=== PATIENT | female | born 1950 | race Caucasian/White ===

== ENCOUNTER 2017-02-11 12:44 | Observation (INO) | payer OTHER, BC ==
--- NOTE | 2017-02-11 12:55 | CPEKG ---
Heart Rate: 81 RR Interval: 741 P-R Interval: 160 QRSD Interval: 72 QT Interval: 348 QTC Interval: 404 P [place]: 60 QRS [place]: 52 T Wave [place]: 19 EKG Severity - ABNORMAL ECG - EKG Impression: SINUS RHYTHM EKG Impression: LEFT ATRIAL ABNORMALITY EKG Impression: Agree with above Electronically Signed By: Sin Sherman 13-Feb-2017 10:52:57
[2017-02-11] MEDS ORDERED: ASPIRIN 81 MG CHEWABLE TAB PO ONE (13:06)
[2017-02-11] MEDS ORDERED: LIDOCAINE 2% VISCOUS 15 ML UDCUP PO ONE (13:06)
[2017-02-11] MEDS ORDERED: MAG HYDROX/AL HYDROX/SIMETH 30 ML UDCUP PO ONE (13:06)
[2017-02-11] MEDS ORDERED: HYOSCYAMINE SULFATE 0.125 MG TAB PO ONE (13:06)
[2017-02-11 13:13] LABS: % IMMATURE GRANULYOCYTES 0.7 % (0.0-1.1); ABSOLUTE IMMATURE GRANULOCYTES 0.08 10^3/uL (0.00-0.10); ADD DIFF? NO; ADD MORPH? NO; ADD SCAN? NO; ATYPICAL LYMPHOCYTE FLAG 0 (0-99); FRAGMENT RBC FLAG 0 (0-99); HEMATOCRIT 42.8 % (38.0-47.0); HEMOGLOBIN 15.3 g/dL (12.6-16.3); LEFT SHIFT FLG 0 (0-99); LIPEMIA HEMOLYSIS FLAG 90 (0-99); MEAN CELL HEMOGLOBIN 32.1 pg (27.9-34.1); MEAN CELL HEMOGLOBIN CONCENTR. 35.7 g/dL (32.4-36.7); MEAN CELL VOLUME 89.7 fL (81.5-99.8); MEAN PLATELET VOLUME 8.9 fL (8.7-11.7); PLATELET CLUMPS FLAG 0 (0-99); PLATELET COUNT 356 10^3/uL (150-400); RED BLOOD CELL COUNT 4.77 10^6/uL (4.18-5.33); RED CELL DISTRIBUTION WIDTH 13.5 % (11.5-15.2)
[2017-02-11 13:21] LABS: ANION GAP 14 mEq/L (8-16); CARBON DIOXIDE 22 mEq/l (22-31); CHLORIDE 96 mEq/L (97-110); CREATININE 0.8 mg/dL (0.6-1.0); GLOMERULAR FILTRATION RATE > 60; GLUCOSE 94 mg/dL (70-100); POTASSIUM 4.8 mEq/L (3.5-5.2); SODIUM 132 mEq/L (134-144)
--- NOTE | 2017-02-11 13:22 | EDPHY ---
H & P Stated Complaint: chest tightness and sob since yesterday Time Seen by Provider: 02/11/17 12:50 HPI/ROS: CHIEF COMPLAINT: Episodic chest discomfort/warmth with shortness of breath and lightheadedness HISTORY OF PRESENT ILLNESS: 67-year-old female with no cardiac risk factors except for possible slightly high cholesterol presents with shortness of breath , lightheadedness and chest discomfort. Approximately 3-4 weeks ago the patient had a significant poison carla exposure. This resulted in a full body rash in the patient was on prednisone for 10 days. Last dose of prednisone was 3 days ago. She continues to use antihistamines intermittently and continues to have a urticarial rash on her chest arms and legs. Patient went for 4 mi hike yesterday and felt well. However at 3 o'clock in the afternoon she developed lightheadedness, feeling like she might faint, shortness of breath, and anterior chest discomfort. She described it as "just not feeling well ". She laid down with no improvement. She could not identify no clear exacerbating or relieving factors. Symptoms subsided on their own after approximately 4 hours. She did discuss that with her commercial coordinator felt like it was not related to her medications. Today, 2 hours prior to presentation, patient began to experience the same symptoms. She reports a "warmth" in her chest, feeling of shortness of breath, and feeling lightheaded. No nausea. No vomiting. No diaphoresis. No radiation of the discomfort. No abdominal pain. No palpitations. Patient did report slight diarrhea this morning. She has had no urinary complaints. No headache. No fainting. REVIEW OF SYSTEMS: Aside from elements discussed in the HPI, a comprehensive 10-point review of systems was reviewed and is negative. PAST MEDICAL HISTORY: Patient denies. Questionable slight hypercholesterolemia but takes no meds. No family history of coronary artery disease or venous thromboembolic disease. SOCIAL HISTORY: Nonsmoker. Former city engineer. VITAL SIGNS: see nurse's notes. GENERAL: Well-developed, well-nourished, in mild discomfort. Patient rates the discomfort as /10. Seems somewhat anxious. HEENT: Atraumatic. Eyes: No injection or icterus. Oropharynx: No erythema , no injection, no swelling. Neck: No JVD, no bruits, supple with no adenopathy. LUNGS: Clear to auscultation bilaterally, no wheezes, rhonchi or rales. CARDIAC: Regular rate and rhythm, no murmurs, no rubs, no gallops. ABDOMEN: Soft, nontender, nondistended, bowel sounds normal. BACK: No CVA tenderness. EXTREMITIES: No trauma. No clubbing, cyanosis or edema. Range of motion is normal throughout. NEURO: Alert and oriented , grossly nonfocal. SKIN: No diaphoresis, warm and dry, urticarial rash throughout trunk, arms, and back. - Personal History Current Tetanus Diphtheria and Acellular Pertussis (TDAP): Yes Tetanus Vaccine Date: less than 10 years - Medical/Surgical History Hx Asthma: No Hx Chronic Respiratory Disease: No Hx Diabetes: No Hx Cardiac Disease: No Hx Renal Disease: No Hx Cirrhosis: No Hx Alcoholism: No Hx HIV/AIDS: No Hx Splenectomy or Spleen Trauma: No Other PMH: anxiety - Social History Smoking Status: Never smoked Constitutional: Initial Vital Signs Temperature (C) 36.3 C 02/11/17 12:52 Heart Rate 95 02/11/17 12:52 Respiratory Rate 18 02/11/17 12:52 Blood Pressure 173/102 H 02/11/17 12:52 O2 Sat (%) 97 02/11/17 12:52 O2 Delivery Mode Room Air Allergies/Adverse Reactions: No Known Allergies Allergy (Verified 06/21/15 14:03) Home Medications: Medication Instructions Recorded LaMICtal 04/15/15 Valtrex 05/05/15 Ciprofloxacin [Cipro] 1 tab PO BID #7 tab 06/21/15 Medical Decision Making - Diagnostics EKG Interpretation: 12-LEAD EKG: Please see the full report in [facility]. My interpretation: Sinus rhythm, no ischemic changes. Imaging Results: Imaging Impressions Chest X-Ray 02/11/17 13:07 Impression: Clear lungs. No acute process. Xray: [ ] was obtained. I viewed the images myself on the PACS system. My interpretation of the images is: [ ]. The radiology interpretation is: [ ]. I discussed the results with the patient. ED Course/Re-evaluation: 67-year-old female presenting with 2 episodes of chest "discomfort/warmth", associated with lightheadedness and shortness of breath. No cardiac risk factors except for hypercholesterolemia. Patient's evaluation included an EKG demonstrating normal sinus rhythm with T- wave inversion lead 3. Troponin was negative. D-dimer is negative. Chest x- ray was normal. Discussed with the patient possibility of coronary artery disease, reflux, anxiety, atypical chest pain. Patient has had a stress test 5 years ago but none since then. Decision was made to admit the patient for serial troponins as well as urgent risk stratification. Patient did receive a GI cocktail which took her pain from 4/10 to 2/10. She was given Protonix and offered morphine for residual pain. Patient's course was discussed with Dr. Alis Larson. She will be admitted to the PCU for further observation. 1445: Patient reports recurrence of significant chest warmth. Repeat EKG demonstrates flattening of the T's in aVL and normalization of the T-wave inversion in lead 3. Patient is no longer tachycardic. Differential Diagnosis: After history and physical examination, the differential for chest pain was considered, including but not limited to, myocardial ischemia, acute coronary syndrome, pulmonary embolus, chest wall pain, gastrointestinal causes, pleural inflammation and pulmonary infectious causes. Consult/Admit Bed Type: Dr. Alis Larson, PCU - Data Points Laboratory Results: Laboratory Results 02/11/17 13:05 02/11/17 13:05 02/11/17 02/11/17 02/11/17 13:05 13:05 13:05 WBC 11.38 10^3/uL H 10^3/uL (3.80-9.50) RBC 4.77 10^6/uL 10^6/uL (4.18-5.33) Hgb 15.3 g/dL g/dL (12.6-16.3) Hct 42.8 % % (38.0-47.0) MCV 89.7 fL fL (81.5-99.8) MCH 32.1 pg pg (27.9-34.1) MCHC 35.7 g/dL g/dL (32.4-36.7) RDW 13.5 % % (11.5-15.2) Plt Count 356 10^3/uL 10^3/uL (150-400) MPV 8.9 fL fL (8.7-11.7) Neut % (Auto) 64.3 % % (39.3-74.2) Lymph % (Auto) 26.1 % % (15.0-45.0) [place] % (Auto) 6.9 % % (4.5-13.0) Eos % (Auto) 1.5 % % (0.6-7.6) Baso % (Auto) 0.5 % % (0.3-1.7) Nucleat RBC Rel Count 0.0 % % (0.0-0.2) Absolute Neuts (auto) 7.31 10^3/uL H 10^3/uL (1.70-6.50) Absolute Lymphs (auto) 2.97 10^3/uL 10^3/uL (1.00-3.00) Absolute Monos (auto) 0.79 10^3/uL 10^3/uL (0.30-0.80) Absolute Eos (auto) 0.17 10^3/uL 10^3/uL (0.03-0.40) Absolute Basos (auto) 0.06 10^3/uL 10^3/uL (0.02-0.10) Absolute Nucleated RBC 0.00 10^3/uL 10^3/uL (0-0.01) Immature Gran % 0.7 % % (0.0-1.1) Immature Gran # 0.08 10^3/uL 10^3/uL (0.00-0.10) D-Dimer 0.32 ug/mLFEU ug/mLFEU (0.00-0.50) Sodium 132 mEq/L L mEq/L (134-144) Potassium 4.8 mEq/L mEq/L (3.5-5.2) Chloride 96 mEq/L L mEq/L (97-110) Carbon Dioxide 22 mEq/l mEq/l (22-31) Anion Gap 14 mEq/L mEq/L (8-16) BUN 16 mg/dL mg/dL (7-23) Creatinine 0.8 mg/dL mg/dL (0.6-1.0) Estimated GFR > 60 Glucose 94 mg/dL mg/dL (70-100) Calcium 10.0 mg/dL mg/dL (8.5-10.4) Troponin I < 0.012 ng/mL ng/mL (0.000-0.034) Lipase 297 IU/L IU/L (23-300) Medications Given: Discontinued Medications Al Hydroxide/Mg Hydroxide (Maalox Susp) 30 ml PO ONCE ONE Stop: 02/11/17 13:07 Last Admin: 02/11/17 13:13 Dose: 30 ml Aspirin (Aspirin) 324 mg PO EDNOW ONE Stop: 02/11/17 13:07 Last Admin: 02/11/17 13:14 Dose: 324 mg Hyoscyamine Sulfate (Levsin, Hyomax-Sl) 0.25 mg PO ONCE ONE Stop: 02/11/17 13:07 Last Admin: 02/11/17 13:14 Dose: 0.25 mg Lidocaine (Lidocaine 2% Viscous) 15 ml PO ONCE ONE Stop: 02/11/17 13:07 Last Admin: 02/11/17 13:13 Dose: 15 ml Departure - Departure Disposition: [facility] Inpatient Acute Clinical Impression: Lightheaded Chest pain Qualifiers: Chest pain type: unspecified Qualified Code(s): R07.9 - Chest pain, unspecified Condition: Good
[2017-02-11 13:35] LABS: TROPONIN I < 0.012 ng/mL (0.000-0.034)
[2017-02-11] MEDS ORDERED: PANTOPRAZOLE SODIUM 40 MG TAB PO ONE (14:40)
--- NOTE | 2017-02-11 15:03 | CPEKG ---
Heart Rate: 61 RR Interval: 984 P-R Interval: 188 QRSD Interval: 70 QT Interval: 404 QTC Interval: 407 P [place]: 40 QRS [place]: 32 T Wave [place]: 52 EKG Severity - NORMAL ECG - EKG Impression: SINUS RHYTHM EKG Impression: Left atrial abnormality EKG Impression: No significant change from February 11, 2017, 12:53 Electronically Signed By: Sin Sherman 13-Feb-2017 10:52:31
[2017-02-11] MEDS ORDERED: ONDANSETRON 4 MG/2 ML VIAL IVP PRN (18:35)
[2017-02-11] MEDS ORDERED: ACETAMINOPHEN 325 MG TAB PO PRN (18:35)
[2017-02-11] MEDS ORDERED: NS 1,000 ML IV SCH (18:45)
[2017-02-11] MEDS ORDERED: IBUPROFEN 600 MG TAB PO PRN (19:43)
[2017-02-11] MEDS ORDERED: LORazepam 0.5 MG TAB PO PRN (19:45)
[2017-02-11] MEDS ORDERED: traMADol 50 MG TAB PO PRN (19:45)
--- NOTE | 2017-02-11 20:34 | GHP ---
[f rep st] HISTORY AND PHYSICAL DATE OF ADMISSION: 02/11/2017 CHIEF COMPLAINT: The patient is a 67-year-old female, who has recently been battling a severe case o f poison carla. Approximately 3 weeks ago, she did not recognize that poison carla could change colors i n the fall, and made a large flower arrangement including it. She developed extensive poison carla fro m head to toe that was so severe, she required oral prednisone. She has been seeing a seed technician. She was taking hydroxyzine 75 mg every 4 hours for 8 days, as well as tramadol. She weaned off her prednisone 3 days ago. She is quite active at baseline and took a 4-mile hike yesterday feeling wel l. Overall, however, she is having ongoing severe itching from the poison carla. She is feeling very anxious and like she is going to jump out of her skin. Yesterday, she developed an episode of chest pressure with associated shortness of breath and lighthe adedness. This lasted from 4 p.m. to 8 p.m. She had a 2nd episode this morning lasting from 8 a.m. until 4 p.m., when she got IV morphine in the emergency room. She describes it as a heat and warmth in her chest. Overall, however, what is really bothering her mostly is the ongoing itching from the ongoing rash of her poison carla. PAST MEDICAL HISTORY: Hyperlipidemia, on diet therapy. MEDICATIONS: Please see computer record for full detailed list. ALLERGIES: No known drug allergies. SOCIAL HISTORY: No smoking. No alcohol. She lives alone. REVIEW OF SYSTEMS: Complete review of systems obtained. Review of systems is negative regarding con stitutional, HEENT, GI, pulmonary, cardiovascular, , hematology, skin, muscular, endocrine, psych, except for positives and negatives as in HPI. FAMILY HISTORY: Negative for coronary artery disease. PHYSICAL EXAMINATION: GENERAL: Well-developed, well-nourished female, in no distress. VITAL SIGNS: Temperature is 37.2, pulse 73, blood pressure 94/66, satting 95% on room air. EYES: Normal conjun ctivae. Pupils react to light. ENT: Normal ears and nose. Hearing intact. Normal teeth. Orophar ynx moist. NECK: Trachea midline. No thyromegaly. CHEST: Normal respiratory effort. LUNGS: Jori ar to auscultation bilaterally. CARDIOVASCULAR: Regular rhythm. No murmur. No extremity edema. A BDOMEN: Soft, nontender. No hepatosplenomegaly. SKIN: She does have ongoing large areas of healin g poison carla, consistent with contact dermatitis over her arms, her abdomen. MUSCULOSKELETAL: No cy anosis or clubbing. Strength 5/5 upper and lower extremities. NEUROLOGIC: Cranial nerves intact. Normal sensation to light touch. PSYCHIATRIC: Alert and oriented x3. Normal affect. Normal judgme nt and insight. Normal memory. LABORATORY DATA: White count 11.38, hematocrit 42.8, platelets 356. Sodium 132, potassium 4.8, chlo ride 96, bicarb 22, BUN 16, creatinine 0.8, glucose 94. D-dimer is negative. Troponin is negative. EKG, reviewed by me, my personal interpretation is normal sinus rhythm, no ST-T wave changes. Chest x-ray is negative. ASSESSMENT/PLAN: 1. Chest pain. Her only risk factor is hyperlipidemia. What is more likely is that she is having o ngoing anxiety and poorly controlled symptoms related to poison carla. We will, however, follow serial troponins and EKGs, and order an exercise treadmill test in the morning. 2. Poison carla with contact dermatitis. Still extensive rash and itching. She has been weaned off o ral prednisone, but I will start her on a topical steroid cream. It is okay for to continue antihist amine and will increase her hydroxyzine to 25 mg p.o. t.i.d. She can take Motrin. 3. Lightheadedness. I doubt she is suffering from adrenal insufficiency after a short 2-week course of prednisone. We will hydrate with intravenous fluids. I also doubt cardiac etiologies, but we wi ll watch her on telemetry and check a TSH. My suspicion is this is due to ongoing histamine release from her poison carla. 4. Hyperlipidemia, on diet control. We will recheck a lipid panel in the morning. CODE STATUS: Full. ADMISSION STATUS: We will admit to observation. Anticipate discharge home tomorrow if cardiac gume p is negative. DVT PROPHYLAXIS: Low risk. /[id number]/MODL
[2017-02-11] MEDS ORDERED: hydrOXYzine HCL 25 MG TAB PO SCH (21:00)
[2017-02-11] MEDS: HYDROCORTISONE 1% CREAM TP SCH (22:14)
[2017-02-11] MEDS: hydrOXYzine HCL 25 MG TAB PO SCH (22:30)
[2017-02-12] MEDS ORDERED: COSYNTROPIN 0.25 MG/2 ML SYRINGE IVP ONE (06:00)
[2017-02-12] MEDS: hydrOXYzine HCL 25 MG TAB PO SCH ×2 (06:41→14:32)
[2017-02-12 06:43] LABS: % IMMATURE GRANULYOCYTES 0.6 % (0.0-1.1); ABSOLUTE IMMATURE GRANULOCYTES 0.04 10^3/uL (0.00-0.10); ADD DIFF? NO; ADD MORPH? NO; ADD SCAN? NO; ATYPICAL LYMPHOCYTE FLAG 0 (0-99); FRAGMENT RBC FLAG 0 (0-99); HEMATOCRIT 38.2 % (38.0-47.0); HEMOGLOBIN 13.2 g/dL (12.6-16.3); LEFT SHIFT FLG 0 (0-99); LIPEMIA HEMOLYSIS FLAG 90 (0-99); MEAN CELL HEMOGLOBIN 32.4 pg (27.9-34.1); MEAN CELL HEMOGLOBIN CONCENTR. 34.6 g/dL (32.4-36.7); MEAN CELL VOLUME 93.6 fL (81.5-99.8); MEAN PLATELET VOLUME 8.8 fL (8.7-11.7); PLATELET CLUMPS FLAG 0 (0-99); PLATELET COUNT 270 10^3/uL (150-400); RED BLOOD CELL COUNT 4.08 10^6/uL (4.18-5.33); RED CELL DISTRIBUTION WIDTH 13.7 % (11.5-15.2)
[2017-02-12 06:58] LABS: ANION GAP 9 mEq/L (8-16); CALCIUM 8.4 mg/dL (8.5-10.4); CARBON DIOXIDE 26 mEq/l (22-31); CHLORIDE 104 mEq/L (97-110); CHOLESTEROL 189 mg/dL (140-220); CHOLESTEROL/HDL RATIO 2.74 RATIO (1.00-4.44); CREATININE 0.9 mg/dL (0.6-1.0); GLOMERULAR FILTRATION RATE > 60; GLUCOSE 92 mg/dL (70-100); HIGH DENSITY LIPOPROTEIN 69 mg/dL (40-85); LDL/HDL RATIO 1.64 RATIO (1.00-3.22); LOW DENSITY LIPOPROTEIN 113 mg/dL (80-100); NON-HIGH DENSITY LIPOPROTEIN 120 mg/dL (90-129); POTASSIUM 4.8 mEq/L (3.5-5.2); SODIUM 139 mEq/L (134-144); TRIGLYCERIDE 38 mg/dL (35-135); VERY LOW DENSITY LIPOPROTEINS 7 mg/dL (8-25)
[2017-02-12 07:10] LABS: TROPONIN I < 0.012 ng/mL (0.000-0.034)
--- NOTE | 2017-02-12 08:50 | CPEKG ---
Heart Rate: 55 RR Interval: 1091 P-R Interval: 204 QRSD Interval: 72 QT Interval: 428 QTC Interval: 410 P [place]: 61 QRS [place]: 62 T Wave [place]: 73 EKG Severity - OTHERWISE NORMAL ECG - EKG Impression: SINUS RHYTHM EKG Impression: Possible left atrial abnormality EKG Impression: No significant change from February 11, 2017 Electronically Signed By: Sin Sherman 12-Feb-2017 09:33:16
[2017-02-12] MEDS ORDERED: valACYclovir 500 MG TAB PO SCH (09:00)
[2017-02-12] MEDS: HYDROCORTISONE 1% CREAM TP SCH (09:43)
--- NOTE | 2017-02-12 10:32 | HOSPPROG ---
Hospitalist Progress Note Assessment/Plan: 67 yo female with hx of diet controlled HLD and recent poison Cecile exposure p/w chest pain. W/u negative to include Trop's, EKG, Telemetry, CXR, TSH LDL 113. She wants to talk to her PCP about starting a statin Awaiting Treadmill stress test. Ancipate d/c today #Chest Pain #HLD #Poison Cecile exposure. Off steroids for several days. cont with Hydrocortisone cream which was started here. Cont with Hydroxysine #?Anxiety Subjective: no CP. No SOB. No palpiations. Objective: Vital Signs Temp Pulse Resp BP Pulse Ox 36.6 C 65 13 104/70 95 02/12/17 04:00 02/12/17 04:00 02/12/17 04:00 02/12/17 04:00 02/12/17 04:00 Laboratory Results 02/12/17 06:30 02/12/17 06:30 02/11/17 02/12/17 02/13/17 05:59 05:59 05:59 Intake Total 500 Balance 500 - Physical Exam Constitutional: no apparent distress Eyes: PERRL, EOMI Ears, Nose, Mouth, Throat: moist mucous membranes, hearing normal, ears appear normal Cardiovascular: regular rate and rhythym, No irregularly irregular Respiratory: no respiratory distress, no rales or rhonchi, clear to auscultation Gastrointestinal: normoactive bowel sounds, soft, non-tender abdomen Skin: warm Neurologic: AAOx3 Psychiatric: interacting appropriately, not anxious, not encephalopathic ICD10 Worksheet Patient Problems: Problems Problem Status Onset Chest pain Acute Lightheaded Acute
--- NOTE | 2017-02-12 11:27 | CPR ---
[f rep st] NONINVASIVE CARDIAC PROCEDURE REPORT DATE OF PROCEDURE: 02/12/2017 PROCEDURE: Exercise treadmill test. INDICATION: The patient is a 67-year-old female, who has been treated for poison intravenously for t he last 17 days. She is currently on prednisone, as well as 1-2 other medications. Yesterday she wa s woken up with burning chest discomfort. It persisted for 4 hours, and then resolved. The followin day, she had another event which lasted for 3 hours, and resolved with narcotics. She denies any h istory of hypertension, hyperlipidemia, diabetes, prior tobacco use or family history of premature co ronary artery disease. DESCRIPTION OF PROCEDURE: Consent was obtained, and the patient was placed on continuous telemetry. Her resting EKG revealed normal sinus rhythm, with a heart rate of 71. SC interval 165, QRS duratio n 75 and a QTc of 416. She had no ischemic changes on her resting EKG. The patient walked on the treadmill for 9 minutes. She complained of a burning hot sensation in her chest at peak exercise. She remained in normal sinus rhythm, but did develop [address] depress ion in the lateral leads at peak exercise. This recovered within 1 minute of recovery. Her blood pr essure at rest was 108/68. It increased appropriately, and returned to baseline within 5 minutes of recovery. PLAN: Abnormal exercise treadmill test. I would recommend the patient have more sophisticated study , such as a nuclear stress test. /[id number]/MODL
[2017-02-12 11:56] VITALS: O2SAT 96
--- NOTE | 2017-02-12 14:58 | CPR ---
[f rep st] NONINVASIVE CARDIAC PROCEDURE REPORT DATE OF PROCEDURE: 02/12/2017 PROCEDURE PERFORMED: Exercise nuclear stress test. INDICATIONS: The patient is a 67-year-old female who presented to the hospital with 2 episodes of bu rning chest discomfort, which came on without warning. Her first event lasted for 4 hours, and the , she had a second event, which lasted for 3 hours. She had an exercise treadmill test, which was abnormal, prompting a nuclear stress test. PROCEDURE: Consent was obtained, and the patient was placed on continuous telemetry. Her resting EK G revealed normal sinus rhythm with a heart rate of 67, TN interval 170, QRS duration of 72, QTc of 4 03. Her resting EKG is nonischemic. The patient walked on the treadmill for 8 minutes. In the firs t stage, she developed T-wave flattening in the anterior and lateral leads. At peak exertion, she deleon d 0.[address] depression in the anterior and lateral leads. She did complain of a hot sensation wit hin her chest at peak exertion. Her blood pressure at rest was 102/78. It peaked at 168/72 and retu rned to baseline within 3 minutes of recovery. Her chest discomfort resolved 3 minutes into recovery as well. PLAN: Await nuclear images. /[id number]/MODL
--- NOTE | 2017-02-12 15:26 | ASMTCASEMG ---
Living Arrangements What is your living Answers: Alone arrangement? Who do you live with? Type Of Residence What kind of residence do Answers: House you live in? Discharge Plan Comments Coordination Status Comments Notes: Pt is a 67 y/o female admitted w/ chest pain and shortness of breath and feeling lightheaded. Electrocardiogram and myocardial perfusion scan conducted and awaiting results. Anticipates that pt will most likely d/c independent when medically stable. No therapies ordered at this time. CM available for changes. Date Signed: 02/12/2017 03:25 PM Electronically Signed By:JEREMY Meza
--- NOTE | 2017-02-12 15:55 | ECHO ---
[email or web address] [address] [address] Main: [phone] Fax: Transthoracic Echocardiogram Name: LARRY STYLES MR#: [id number] Study Date: 02/12/2017 Study Time: 07:51 AM Date of : 1950 Age: 67 year(s) Height: 162.6 cm (64 in.) Weight: 65.77 kg (145 lb.) BSA: 1.71 m2 Gender: Female Examination: Echo Indication: Pre syncope Image Quality: Contrast: Requested by: Alis Larson BP: 104 mmHg/70 mmHg Heart Rate: Rhythm: Indication: Pre syncope Procedure Staff Iphone Developer: Rozina Wiley Reading Physician: Mathew Munoz Requesting Provider: Conclusions: Normal size left ventricle. EF is 69 %. No regional wall motion abnormality. Normal diastolic LV function. Mild mitral valve regurgitation is present. Trivial to mild aortic valve regurgitation. Mild tricuspid regurgitation is present. The pulmonary artery pressure is normal. Measurements: Chambers Valvular Assessment AV/MV Valvular Assessment TV/PV Normal Normal Normal Name Value Range Name Value Range Name Value Range Ao Ama (MM): 3.6 cm (2.2 cm-3.7 AV meanP mmHg ( - ) TR Vmax: 1.85 mm/s ( - ) cm) MV E Vmax: 0.80 m/s ( - ) TR PGmax: 14 mmHg ( - ) IVSd (2D): 0.8 cm (0.6 cm-1.1 MV A Vmax: 0.69 m/s ( - ) syst. PAP: 19 mmHg ( - ) cm) MV E/A: 1.16 ( - ) LVDd (2D): 4.4 cm (3.9 cm-5.3 cm) LVDs (2D): 2.4 cm (2.1 cm-4 cm) LVPWd (2D): 0.9 cm ( - ) LVEF (MOD4): 69 % (>=55 %) Continued Measurements: Chambers Valvular Assessment AV/MV Valvular Assessment TV/PV Name Value Name Value Name Value LADs: 3.1 cm MV E/E' Septal: 12.20 CVP (est.): 5 mmHg Patient: LARRY STYLES Study Date: 02/12/2017 Page 1 of 2 07:51 AM LADs Lon.2 cm MV E/E' Lateral: 8.60 LA Area: 16.8 cm2 Additional Vessels Name Value Ao Ascendin.8 cm Findings: Left Ventricle: Normal size left ventricle. No LV hypertrophy. Normal global systolic LV function. EF is 69 %. No regional wall motion abnormality. Normal diastolic LV function. Right Ventricle: Normal size right ventricle. Left Atrium: The left atrium is normal in size. Right Atrium: The right atrium is normal in size. Mitral Valve: The mitral valve is normal in appearance and function. Mild mitral valve regurgitation is present. Aortic Valve: The aortic valve is normal in appearance and function. Trivial to mild aortic valve regurgitation. Tricuspid Valve: The tricuspid valve is normal in appearance and function. Mild tricuspid regurgitation is present. The pulmonary artery pressure is normal. Pulmonic Valve: The pulmonic valve is normal in appearance and function. Aorta: The aorta is normal. Pericardium: No pericardial effusion. (No Signature Object) Patient: LARRY STYLES Study Date: 02/12/2017 Page 2 of 2 07:51 AM [id number]
--- NOTE | 2017-02-12 16:32 | PDDCSUM ---
Discharge Summary Discharge Summary: HPI/Hospital Course: 67 yo female with hx of diet controlled HLD and recent poison Cecile exposure p/w chest pain. W/u negative to include Trop's, EKG, Telemetry, CXR, TSH Treadmill stress test concerning and therefore had a Mis scan which was unremarkable Aspirin 81 mg started. LDL 113. She wants to talk to her PCP about starting a statin DDX: #Chest Pain, atypical pain, resolved #HLD #Poison Cecile exposure. Off steroids for several days. cont with Hydrocortisone cream which was started here. Cont with Hydroxysine #?Anxiety Exam: please see my progress note today f/u: with PCP in 1-2 weeks. total time spent on discharge
[2017-02-12 16:38] VITALS: BP 119/77; PULSE 58; RESP 18; TEMP 97.7
--- NOTE | 2017-02-12 17:01 | ASDISCHSUM ---
Discharge Information Plan Status:Home with No Needs Medically Cleared to Leave:02/12/2017 Discharge Date:02/12/2017 05:00 PM CM D/C Disposition: ADT D/C Disposition:Home, Routine, Self-Care Projected Discharge Date:02/12/2017 12:00 AM Transportation at D/C: Discharge Delay Reason: Follow-Up Date:02/12/2017 12:00 AM Discharge Slot: Final Diagnosis: Placement Information Patient Contact Information Contact Name:JESSICA Relationship:Sister Address: Work Phone: City: [facility] Phone: State/Zip Code: Email: Financial Information Financial Class: Primary Plan Desc:MEDICARE OUTPATIENT Primary Plan Number:[id number] Secondary Plan Desc: OUT OF STATE INDEMNITY Secondary Plan Number:[id number] Assessment Information [facility] Initial CM Assessment Living Arrangements What is your living Answers: Alone arrangement? Who do you live with? Type Of Residence What kind of residence do Answers: House you live in? Discharge Plan Comments Coordination Status Comments Notes: Pt is a 67 y/o female admitted w/ chest pain and shortness of breath and feeling lightheaded. Electrocardiogram and myocardial perfusion scan conducted and awaiting results. Anticipates that pt will most likely d/c independent when medically stable. No therapies ordered at this time. CM available for changes. Date Signed: 02/12/2017 03:25 PM Electronically Signed By:JEREMY Meza Intervention Information Intervention Type:*ANDREA-Signed Date of Service:02/12/2017 10:19 AM Patient Type:Observation Staff Member:Fawn Hamlin Hours: Discipline: Severity: Comment:
[2017-02-13] MEDS ORDERED: ASPIRIN 81 MG CHEWABLE TAB PO SCH (09:00)
[2017-02-13] MEDS ORDERED: Estradiol [Yuvafem] 10 MCG VG SCH (18:33)
== END 2017-02-12 17:00 | disposition home or self-care (01) ==
LOC: CED 12:44 → CEDHOLD 14:11 → F2W 16:24
PROVIDERS: ADMIT Internal Medicine; ATTEND Family Medicine
DX: R07.9 Chest pain, unspecified (principal); R06.02 Shortness of breath; R42 Dizziness and giddiness; E78.5 Hyperlipidemia, unspecified; L23.7 Allergic contact dermatitis due to plants, except food; F41.9 Anxiety disorder, unspecified; R94.39 Abnormal result of other cardiovascular function study
CPT/HCPCS: 71020; 78452; 93005; 93017; 93306; A9500; G0378; 80048-PO; 83690-PO; 84484-PO; 85025-PO; 85378-PO; 96374; J0834

== ENCOUNTER → 2017-03-30 | Outpatient (CLI) | payer OTHER, BC | LOC: FIMAGING 11:40 | PROVIDERS: ATTEND Family Medicine | DX: Z12.31 Encounter for screening mammogram for malignant neoplasm of breast (principal) | CPT/HCPCS: G0202 ==

== ENCOUNTER 2017-05-10 20:23 | Emergency (ER) | payer OTHER, BC ==
--- NOTE | 2017-05-10 20:39 | EDPHY ---
HPI/HX/ROS/PE/MDM Narrative: CHIEF COMPLAINT: Cough HPI: The patient is a 67-year-old female with no significant past medical history. She complains of approximately week and a half of cough and cold-like symptoms including a fever which was present for several days but has been gone for the last week, but nonproductive dry cough, burning in the chest and malaise. She states several friends of hers have had pneumonia so she is concerned that she has developed this. She denies chest pain when not coughing. She has no history of hypercholesterolemia, hypertension, lung disease or heart disease. REVIEW OF SYSTEMS: Aside from elements discussed in the HPI, a comprehensive 10-point review of systems was reviewed and is negative. PMH: None significant. SOCIAL HISTORY: Denies alcohol or drug abuse. Avid dancer. PHYSICAL EXAM: General:Patient is alert, in no acute distress. ENT:Eyes are normal to inspection. ENT inspection normal. Neck: Normal inspection. Full range of motion. Respiratory:No respiratory distress. Breath sounds normal bilaterally. Cardiovascular: Regular rate and rhythm. Strong peripheral pulses. Normal cap refill. Abdomen:The abdomen is nontender to palpation. There are no peritoneal signs. There are normal bowel sounds. Back: Normal to inspection. No tenderness to palpation. Skin: Normal color. No rash. Warm and dry. Extremities: Normal appearance. Full range of motion. Neuro: Oriented x3. Normal motor function. Normal sensory function. MDM: This patient presents with greater than a week of cough and cold symptoms. She is no longer febrile and CXR is negative for PNA. She is not hypoxic and vitals are normal. I think her symptoms are most consistent with a viral bronchitis. I will treat her with cough suppressant and we discussed strict return precautions. There is no evidence for PE or cardiac process. - Data Points Imaging Results: Imaging Impressions Chest X-Ray 05/10/17 20:33 Impression: Chest negative for acute cardiopulmonary abnormality. Imaging: I viewed and interpreted images myself General Time Seen by Provider: 05/10/17 20:33 Initial Vital Signs: Initial Vital Signs Temperature (C) 36.5 C 05/10/17 20:36 Heart Rate 70 05/10/17 20:36 Respiratory Rate 16 05/10/17 20:36 Blood Pressure 140/90 H 05/10/17 20:36 O2 Sat (%) 96 05/10/17 20:36 O2 Delivery Mode Room Air Allergies/Adverse Reactions: No Known Allergies Allergy (Verified 05/10/17 20:35) Home Medications: Medication Instructions Recorded Valacyclovir HCl [Valtrex] 1,000 mg PO DAILY 05/05/15 Codeine Phosphate/Guaifenesin 5 ml PO Q6 PRN #75 ml 05/10/17 [Virtussin AC Liquid] Departure - Departure Disposition: Home, Routine, Self-Care Clinical Impression: Acute bronchitis Condition: Good Instructions: Narcotic-Analgesic/Acetaminophen (By mouth), Acute Bronchitis (ED ) Additional Instructions: Follow up with your primary care physician within 72 hours for reevaluation. Drink plenty of fluids. Return to the emergency department immediately for high fever, severe headache or neck pain, difficulty breathing, abdominal pain, rash or other worsening of condition. Referrals: Tierra Vick MD [Primary Care Provider] - As per Instructions Prescriptions: Codeine Phosphate/Guaifenesin [Virtussin AC Liquid] 5 ml PO Q6 PRN #75 ml PRN Reason: Cough, Severe
[2017-05-10 20:48] VITALS: BP 140/90; PULSE 70; RESP 16; TEMP 97.7; O2SAT 96
[2017-05-10] MEDS ORDERED: GUAIFENESIN/DM 10 ML UDCUP PO PRN (20:57)
[2017-05-10] MEDS ORDERED: ACETAMINOPHEN/CODEINE 300/30MG TAB PO ONE (20:59)
== END 2017-05-10 21:09 | disposition home or self-care (01) ==
LOC: CED 20:23
DX: J20.9 Acute bronchitis, unspecified (principal)
CPT/HCPCS: 71046-PO

== ENCOUNTER → 2017-06-03 | Outpatient (CLI) | payer OTHER, BC | LOC: FIMAGING 09:25 | PROVIDERS: ATTEND Family Medicine | DX: Z13.820 Encounter for screening for osteoporosis (principal); E78.5 Hyperlipidemia, unspecified; T75.89XA Other specified effects of external causes, initial encounter; E83.51 Hypocalcemia; Z79.899 Other long term (current) drug therapy; Z78.0 Asymptomatic menopausal state ==

== ENCOUNTER 2017-06-18 18:17 | Emergency (ER) | payer OTHER, BC ==
--- NOTE | 2017-06-18 18:42 | EDPHY ---
H & P Time Seen by Provider: 06/18/17 18:41 HPI/ROS: Chief complaint. Urinary frequency HPI. 67-year-old female presents with urinary frequency and burning on urination that began about 3 hr ago. She has a history of UTIs and has UTIs about twice per year. This feels the same. No flank pain, fever, vomiting. No blood in her urine. ROS Constitutional. no fever/chills, no weakness Eyes. no problems with vision ENT. no sore throat, no nasal drainage Cardiovascular. no chest pain Respiratory. no shortness of breath, no cough Abdominal. no abdominal pain, no nausea/vomiting, no diarrhea . Urinary frequency and dysuria MS. no calf pain/swelling, no neck/back pain, no joint pain Skin. no rash Lymph. no swollen glands Neuro. no headache, no dizziness, no difficulty walking or with speech Past Medical/Surgical History: UTI, anxiety, spinal fusion, dyslipidemia Social History: Single, nonsmoker, no alcohol Smoking Status: Never smoked Physical Exam: General Appearance: Alert pleasant well-developed female mild distress vital signs are stable Eyes: Pupils equal and round no pallor or injection. ENT, Mouth: Mucous membranes are moist. Respiratory: There are no retractions, lungs are clear to auscultation. Cardiovascular: Regular rate and rhythm. Gastrointestinal: Abdomen is soft and nontender, no masses, bowel sounds normal. Neurological: Awake and alert, sensory and motor exams grossly normal. Skin: Warm and dry, no rashes. Musculoskeletal: Neck is supple nontender. Extremities symmetrical, full range of motion. Psychiatric: Patient is oriented X 3, there is no agitation. Constitutional: Initial Vital Signs Temperature (C) 36.8 C 06/18/17 18:21 Heart Rate 73 06/18/17 18:21 Respiratory Rate 16 06/18/17 18:21 Blood Pressure 132/97 H 06/18/17 18:21 O2 Sat (%) 97 06/18/17 18:21 O2 Delivery Mode Room Air Allergies/Adverse Reactions: No Known Allergies Allergy (Verified 06/18/17 18:24) Home Medications: Medication Instructions Recorded Valacyclovir HCl [Valtrex] 1,000 mg PO DAILY 05/05/15 Cephalexin [Keflex (*)] 500 mg PO TID #40 cap 06/18/17 Phenazopyridine HCl [Pyridium] 200 mg PO TID #6 tab 06/18/17 Medical Decision Making Procedures: After urinalysis suggestive of urinary tract infection patient given cephalexin and peridium in the emergency department ED Course/Re-evaluation: Patient and I discussed laboratory evaluation, treatment plan including criteria for return importance of follow-up and further evaluation. She expresses understanding and agreement Differential Diagnosis: I considered urinary tract infection, pyelonephritis - Data Points Laboratory Results: 06/18/17 18:30 Urine Color YELLOW Urine Appearance HAZY Urine pH 5.5 (5.0-7.5) Ur Specific [place] 1.010 (1.002-1.030) Urine Protein NEGATIVE (NEGATIVE) Urine Ketones NEGATIVE (NEGATIVE) Urine Blood 2+ H (NEGATIVE) Urine Nitrate NEGATIVE (NEGATIVE) Urine Bilirubin NEGATIVE (NEGATIVE) Urine Urobilinogen 0.2 EU EU (0.2-1.0) Ur Leukocyte Esterase 1+ H (NEGATIVE) Urine RBC 10-15 /hpf H /hpf (0-3) Urine WBC 15-25 /hpf H /hpf (0-3) Ur Epithelial Cells 2+ /lpf H /lpf (NONE-1+) Ur Renal Epithelial Cell OCCASIONAL /hpf H /hpf (NONE SEEN) Urine Bacteria TRACE /hpf H /hpf (NONE SEEN) Urine Mucus TRACE /lpf /lpf (NONE-1+) Urine Glucose NEGATIVE (NEGATIVE) Departure - Departure Disposition: Home, Routine, Self-Care Clinical Impression: Urinary tract infection Qualifiers: Urinary tract infection type: acute cystitis Hematuria presence: with hematuria Qualified Code(s): N30.01 - Acute cystitis with hematuria Condition: Good Instructions: Urinary Tract Infection in Women (ED) Additional Instructions: Drink plenty of fluids and stay hydrated. Cephalexin using 1 pill 3 times daily for a week. Peridium as needed for frequency and burning. Return for flank pain, fever, vomiting. Recheck in 2 days if not improved Referrals: Tierra Vick MD [Primary Care Provider] - As per Instructions Prescriptions: Cephalexin [Keflex (*)] 500 mg PO TID #40 cap Phenazopyridine HCl [Pyridium] 200 mg PO TID #6 tab
[2017-06-18] MEDS ORDERED: CEPHALEXIN 500MG PREPACK#4 BTL TAKEHOME ONE (18:54)
[2017-06-18] MEDS ORDERED: PHENAZOPYRIDINE HCL 200 MG TAB PO ONE (18:55)
[2017-06-18 19:12] VITALS: BP 125/84; PULSE 80; RESP 18; TEMP 98.4; O2SAT 96
== END 2017-06-18 19:12 | disposition home or self-care (01) ==
LOC: CED 18:17
DX: N30.01 Acute cystitis with hematuria (principal); B96.20 Unspecified Escherichia coli [E. coli] as the cause of diseases classified elsewhere
CPT/HCPCS: 81003-PO; 81015-PO

== ENCOUNTER 2018-02-24 17:37 | Emergency (ER) | payer OTHER, BC ==
[2018-02-24 17:48] VITALS: BP 130/97
[2018-02-24] MEDS ORDERED: CEPHALEXIN 500 MG CAP PO ONE (17:55)
--- NOTE | 2018-02-24 17:57 | EDPHY ---
H & P Time Seen by Provider: 02/24/18 17:45 HPI/ROS: This patient notes an area of redness warmth and slight discomfort to her left upper arm after having pneumococcal and hep a immunizations in the same arm yesterday. She denies any other associated symptoms the exception of lingering cold symptoms of slight nasal congestion and very mild sore throat which she felt she had for the previous week and had almost resolved but recurred slightly today. ROS: Constitutional: No fevers or chills. No significant fatigue. HEENT: No odynophagia. No significant dysphonia. No ear pain. No sinus pain. Neuro: No confusion Integumentary: No skin rash elsewhere Pulmonary: No cough Cardiovascular: No complaints new line GI: No nausea vomiting 7 point review of symptoms is performed and otherwise negative with exception of pertinent positives and negatives listed in HPI and ROS Past Medical/Surgical History: Otherwise healthy Smoking Status: Never smoked Physical Exam: Physical Exam Vital signs are normal. General: No acute distress HEENT: Oropharynx: No significant erythema, exudates or dysphonia. Ears: Clear bilaterally Eyes: Pupils equal and react to light. Extraocular motions are intact. Lungs: No respiratory distress. Cardiac: Brisk capillary refill is intact throughout. Pulses are 2+ and symmetric in the affected extremity. Skin: The patient has a 5 cm x 2 cm area of erythema to the medial left upper arm with warmth to touch. There is no fluctuance. No petechia or purpura Neuro: Alert and oriented x3 with no sensorimotor deficits. Initial differential diagnosis: Cellulitis, contact dermatitis, nonspecific dermatitis Constitutional: Initial Vital Signs Temperature (C) 37.7 C 02/24/18 17:42 Heart Rate 97 02/24/18 17:42 Respiratory Rate 16 02/24/18 17:42 Blood Pressure 130/97 H 02/24/18 17:42 O2 Sat (%) 95 02/24/18 17:42 O2 Delivery Mode Room Air Allergies/Adverse Reactions: No Known Allergies Allergy (Verified 02/24/18 17:48) Home Medications: Medication Instructions Recorded Valacyclovir HCl [Valtrex] 1,000 mg PO DAILY 05/05/15 Cephalexin [Keflex (*)] 500 mg PO TID #30 cap 02/24/18 MDM/Departure - [facility] ED Course/Re-evaluation: Patient's findings are most consistent with a localized cellulitis. I counseled regarding this will treat with Keflex. Also advised her to use warm packs. She understands need to return emergency department should she develop any worsening symptoms despite the treatment plan. - Depart Disposition: Home, Routine, Self-Care Clinical Impression: Left arm cellulitis Condition: Good Instructions: Cellulitis (ED) Additional Instructions: Diagnosis: Left arm cellulitis Plan: Apply warm packs to the affected area to 3 times a day until symptoms resolve Ibuprofen and/or Tylenol for discomfort if needed Keflex antibiotic as prescribed Return for any significant worsening despite the treatment plan Prescriptions: Cephalexin [Keflex (*)] 500 mg PO TID #30 cap Referrals: Myra Andrews MD [Primary Care Provider] - As per Instructions
== END 2018-02-24 18:12 | disposition home or self-care (01) ==
LOC: CED 17:37
DX: L03.114 Cellulitis of left upper limb (principal)

== ENCOUNTER → 2018-03-22 | Outpatient (CLI) | payer OTHER, BC | LOC: CIMAGING 07:19 | PROVIDERS: ATTEND Family Medicine | DX: K76.89 Other specified diseases of liver (principal) | CPT/HCPCS: 76705-PO ==

== ENCOUNTER → 2018-04-06 | Outpatient (CLI) | payer OTHER, BC | LOC: CIMAGING 08:06 | PROVIDERS: ATTEND Family Medicine | DX: Z13.1 Encounter for screening for diabetes mellitus (principal) ==

== ENCOUNTER → 2018-04-14 | Outpatient (CLI) | payer OTHER, BC | LOC: FIMAGING 12:05 | PROVIDERS: ATTEND Family Medicine | DX: R92.8 Other abnormal and inconclusive findings on diagnostic imaging of breast (principal) ==